=== PATIENT | female | born 1965 | race Caucasian/White ===

== ENCOUNTER 2022-04-05 05:37 | Inpatient (IN) | payer BC ==
[~2022-04-05] VITALS: Ht 146.1 cm; Wt 61.4 kg
[2022-04-05] MEDS ORDERED: NS 1,000 ML IV ONE (06:30)
[2022-04-05] MEDS ORDERED: MORPHINE 4 MG/ML 1ML VIAL/SYRINGE IV ONE (06:30)
[2022-04-05] MEDS ORDERED: ONDANSETRON 4MG/2ML VIAL IV ONE (06:30)
[2022-04-05 06:55] LABS: BASO # 0.1 10^3/uL (0.0-0.2); BASO % 0.7 % (0.0-1.0); EOS % 0.1 % (0.0-3.0); HEMOGLOBIN 17.6 g/dl (12.0-15.5); LYMPH # 1.5 10^3/uL (1.5-5.0); MEAN CORPUSCULAR HEMOGLOBIN 28.2 pg (27.0-33.0); MEAN CORPUSCULAR HGB CONC 34.5 g/dl (32.0-36.5); MEAN CORPUSCULAR VOLUME 81.7 fl (80.0-96.0); MONO # 1.5 10^3/uL (0.0-0.8); MONO % 10.1 % (2.0-8.0); NEUTROPHILS # 11.6 10^3/uL (1.5-8.5); NEUTROPHILS % 78.7 % (36.0-66.0); PLATELET COUNT, AUTOMATED 279 10^3/uL (150-450); RED BLOOD COUNT 6.24 10^6/uL (4.00-5.40); WHITE BLOOD COUNT 14.7 10^3/uL (4.0-10.0)
[2022-04-05 07:10] LABS: ALBUMIN 3.9 GM/DL (3.2-5.2); BILIRUBIN,DIRECT 0.3 MG/DL (0.0-0.2); BILIRUBIN,TOTAL 0.6 MG/DL (0.2-1.0); C REACTIVE PROTEIN QUANTITATIV 8.27 MG/DL (0.00-0.30); CALCIUM LEVEL 9.7 MG/DL (8.5-10.1); CREATININE FOR GFR 1.61 MG/DL (0.55-1.30); GLOMERULAR FILTRATION RATE 35.1 (>51); POTASSIUM SERUM 4.2 MEQ/L (3.5-5.1); TOTAL PROTEIN 8.5 GM/DL (6.4-8.2)
[2022-04-05 07:18] LABS: ERYTHROCYTE SEDIMENTATION RATE 21 mm/hr (0-30)
[2022-04-05] MEDS ORDERED: ISOVUE-370 76% 100ML VIAL As Ordered ONE (07:20)
[2022-04-05] MEDS ORDERED: HOME MED LIST COMPLETE! XX SCH (10:50)
[2022-04-05] MEDS: NS 1,000 ML IV SCH ×2 (11:30→19:32)
[2022-04-05 13:16] VITALS: BP_SYST 140; BP_SYST 80; BP_DIAS 140; BP_DIAS 80
[2022-04-05] MEDS: MORPHINE 4 MG/ML 1ML VIAL/SYRINGE IV PRN ×2 (13:47→21:57)
[2022-04-05] MEDS: ONDANSETRON 4MG/2ML VIAL IV PRN (15:58)
[2022-04-05] MEDS ORDERED: HEPARIN SOD (PORCINE) 5000UNITS/ML 1ML VIAL/SYRINGE SC SCH (21:00)
[2022-04-05] MEDS ORDERED: traZODone 100 MG TAB PO ONE (21:40)
[2022-04-05] MEDS: PANTOPRAZOLE 40MG VIAL IV SCH (21:56)
[2022-04-05 22:00] VITALS: BP 156/92
[2022-04-06] MEDS: NS 1,000 ML IV SCH ×4 (02:18→23:15)
[2022-04-06] MEDS: ONDANSETRON 4MG/2ML VIAL IV PRN ×3 (05:41→23:15)
[2022-04-06] MEDS: MORPHINE 4 MG/ML 1ML VIAL/SYRINGE IV PRN ×3 (05:42→18:55)
[2022-04-06 05:50] VITALS: BP 107/65
[2022-04-06 06:23] LABS: HEMATOCRIT 37.7 % (36.0-47.0); MEAN CORPUSCULAR HEMOGLOBIN 27.6 pg (27.0-33.0); MEAN CORPUSCULAR HGB CONC 32.4 g/dl (32.0-36.5); MEAN CORPUSCULAR VOLUME 85.3 fl (80.0-96.0); RED BLOOD COUNT 4.42 10^6/uL (4.00-5.40); WHITE BLOOD COUNT 7.9 10^3/uL (4.0-10.0)
[2022-04-06 06:24] LABS: HEMOGLOBIN 12.2 g/dl (12.0-15.5); PLATELET COUNT, AUTOMATED 157 10^3/uL (150-450)
[2022-04-06 06:45] LABS: BLOOD UREA NITROGEN 15 MG/DL (7-18); CALCIUM LEVEL 7.5 MG/DL (8.5-10.1); CARBON DIOXIDE LEVEL 22 MEQ/L (21-32); CHLORIDE LEVEL 110 MEQ/L (98-107); CREATININE FOR GFR 0.98 MG/DL (0.55-1.30); GLOMERULAR FILTRATION RATE > 60.0 (>51); GLUCOSE, FASTING 97 MG/DL (70-100); POTASSIUM SERUM 3.7 MEQ/L (3.5-5.1); SODIUM LEVEL 139 MEQ/L (136-145)
[2022-04-06] MEDS: PANTOPRAZOLE 40MG VIAL IV SCH ×2 (09:06→21:44)
[2022-04-06 14:00] VITALS: BP 126/79
[2022-04-06] MEDS ORDERED: cefTRIAXone SOD 1 GM in D5W MINI-BAG PLUS 50 ML IV SCH (15:00)
[2022-04-06 20:00] VITALS: BP 154/82
[2022-04-06] MEDS: traZODone 100 MG TAB PO SCH (21:44)
[2022-04-06] MEDS ORDERED: CIPROFLOXACIN 400 MG in IV 1 EA IV SCH (23:00)
[2022-04-07 06:00] VITALS: BP 134/73
[2022-04-07] MEDS ORDERED: CIPROFLOXACIN 500MG TABLET PO SCH (06:00)
[2022-04-07] MEDS: NS 1,000 ML IV SCH ×3 (06:15→18:02)
[2022-04-07] MEDS: MORPHINE 4 MG/ML 1ML VIAL/SYRINGE IV PRN (08:32)
[2022-04-07] MEDS: ONDANSETRON 4MG/2ML VIAL IV PRN ×2 (08:33→15:07)
[2022-04-07] MEDS: PANTOPRAZOLE 40MG VIAL IV SCH ×2 (08:33→21:49)
[2022-04-07] MEDS ORDERED: CIPR-249 PO (09:02)
[2022-04-07 09:59] LABS: HEMATOCRIT 35.1 % (36.0-47.0); HEMOGLOBIN 11.6 g/dl (12.0-15.5); MEAN CORPUSCULAR HEMOGLOBIN 28.1 pg (27.0-33.0); PLATELET COUNT, AUTOMATED 167 10^3/uL (150-450); RED BLOOD COUNT 4.13 10^6/uL (4.00-5.40); WHITE BLOOD COUNT 5.1 10^3/uL (4.0-10.0)
[2022-04-07 10:40] LABS: BLOOD UREA NITROGEN 7 MG/DL (7-18); CALCIUM LEVEL 8.2 MG/DL (8.5-10.1); CARBON DIOXIDE LEVEL 24 MEQ/L (21-32); CHLORIDE LEVEL 112 MEQ/L (98-107); CREATININE FOR GFR 0.88 MG/DL (0.55-1.30); GLOMERULAR FILTRATION RATE > 60.0 (>51); GLUCOSE, FASTING 113 MG/DL (70-100); POTASSIUM SERUM 3.4 MEQ/L (3.5-5.1); SODIUM LEVEL 142 MEQ/L (136-145)
[2022-04-07] MEDS ORDERED: POTASSIUM CHLORIDE 10MEQ SR TABLET PO ONE (12:10)
[2022-04-07 13:54] VITALS: BP 143/80
[2022-04-07] MEDS: traZODone 100 MG TAB PO SCH (21:49)
[2022-04-07] MEDS: CIPROFLOXACIN 400 MG in IV 1 EA IV SCH (21:50)
[2022-04-07 22:00] VITALS: BP 150/84
[2022-04-08] MEDS: NS 1,000 ML IV SCH ×4 (01:49→19:30)
[2022-04-08 06:00] VITALS: BP 150/83
[2022-04-08] MEDS: PANTOPRAZOLE 40MG VIAL IV SCH ×2 (07:58→20:16)
[2022-04-08] MEDS: CIPROFLOXACIN 400 MG in IV 1 EA IV SCH ×2 (07:58→20:14)
[2022-04-08] MEDS: traMADol 50 MG TAB PO PRN ×2 (07:59→20:15)
[2022-04-08 08:33] LABS: HEMATOCRIT 38.3 % (36.0-47.0); HEMOGLOBIN 12.7 g/dl (12.0-15.5); MEAN CORPUSCULAR HEMOGLOBIN 28.1 pg (27.0-33.0); MEAN CORPUSCULAR HGB CONC 33.2 g/dl (32.0-36.5); MEAN CORPUSCULAR VOLUME 84.7 fl (80.0-96.0); PLATELET COUNT, AUTOMATED 214 10^3/uL (150-450); RED BLOOD COUNT 4.52 10^6/uL (4.00-5.40); WHITE BLOOD COUNT 7.5 10^3/uL (4.0-10.0)
[2022-04-08 09:01] LABS: BLOOD UREA NITROGEN 5 MG/DL (7-18); CALCIUM LEVEL 8.6 MG/DL (8.5-10.1); CARBON DIOXIDE LEVEL 23 MEQ/L (21-32); CHLORIDE LEVEL 109 MEQ/L (98-107); CREATININE FOR GFR 0.94 MG/DL (0.55-1.30); GLOMERULAR FILTRATION RATE > 60.0 (>51); GLUCOSE, FASTING 107 MG/DL (70-100); POTASSIUM SERUM 3.6 MEQ/L (3.5-5.1); SODIUM LEVEL 140 MEQ/L (136-145)
[2022-04-08] MEDS ORDERED: GI COCKTAIL 50ML BTL(HYOSCYAMINE/MAALOX/LIDOCAINE VISCOUS)(1:3:1) PO PRN (10:15)
[2022-04-08 14:00] VITALS: BP 160/95
[2022-04-08 18:54] VITALS: BP 146/79
[2022-04-08] MEDS: traZODone 100 MG TAB PO SCH (20:14)
[2022-04-08 22:00] VITALS: BP 158/79
[2022-04-09] MEDS: NS 1,000 ML IV SCH ×2 (00:23→08:17)
[2022-04-09 05:29] VITALS: BP 147/91
[2022-04-09] MEDS: ONDANSETRON 4MG/2ML VIAL IV PRN (06:18)
[2022-04-09 06:48] LABS: HEMATOCRIT 35.5 % (36.0-47.0); HEMOGLOBIN 11.8 g/dl (12.0-15.5); MEAN CORPUSCULAR HEMOGLOBIN 27.6 pg (27.0-33.0); MEAN CORPUSCULAR HGB CONC 33.2 g/dl (32.0-36.5); MEAN CORPUSCULAR VOLUME 82.9 fl (80.0-96.0); PLATELET COUNT, AUTOMATED 202 10^3/uL (150-450); RED BLOOD COUNT 4.28 10^6/uL (4.00-5.40); WHITE BLOOD COUNT 8.1 10^3/uL (4.0-10.0)
[2022-04-09 07:17] LABS: BLOOD UREA NITROGEN 5 MG/DL (7-18); CALCIUM LEVEL 7.6 MG/DL (8.5-10.1); CARBON DIOXIDE LEVEL 23 MEQ/L (21-32); CHLORIDE LEVEL 111 MEQ/L (98-107); CREATININE FOR GFR 0.82 MG/DL (0.55-1.30); GLOMERULAR FILTRATION RATE > 60.0 (>51); GLUCOSE, FASTING 90 MG/DL (70-100); POTASSIUM SERUM 3.2 MEQ/L (3.5-5.1); SODIUM LEVEL 138 MEQ/L (136-145)
[2022-04-09] MEDS ORDERED: ANALGESIC BALM CRM 3OZ TOP PRN (07:55)
[2022-04-09] MEDS ORDERED: POTASSIUM CHLORIDE 10MEQ SR TABLET PO ONE (07:55)
[2022-04-09] MEDS: CIPROFLOXACIN 400 MG in IV 1 EA IV SCH ×2 (08:17→20:29)
[2022-04-09] MEDS: PANTOPRAZOLE 40MG VIAL IV SCH ×2 (08:18→20:30)
[2022-04-09] MEDS: SUCRALFATE SUSP 1GM/10ML UD PO SCH ×6 (08:18→21:00)
[2022-04-09] MEDS: traMADol 50 MG TAB PO PRN (08:21)
[2022-04-09] MEDS: KCL 40MEQ IN D5/0.45NS 1000ML 1,000 ML IV SCH ×2 (09:56→20:29)
[2022-04-09 14:00] VITALS: BP 173/84
[2022-04-09] MEDS ORDERED: KETOROLAC 30 MG/ML 1ML VIAL IV ONE (16:30)
[2022-04-09 16:39] VITALS: BP 164/86
[2022-04-09] MEDS: LIDOCAINE 5% (LIDODERM) PATCH TD SCH (17:26)
[2022-04-09] MEDS ORDERED: PROMETHAZINE 25MG/ML 1ML VIAL IV STA (17:41)
[2022-04-09 18:32] LABS: BLOOD UREA NITROGEN 5 MG/DL (7-18); CARBON DIOXIDE LEVEL 23 MEQ/L (21-32); CHLORIDE LEVEL 110 MEQ/L (98-107); CREATININE FOR GFR 0.87 MG/DL (0.55-1.30); GLOMERULAR FILTRATION RATE > 60.0 (>51); GLUCOSE, FASTING 117 MG/DL (70-100); POTASSIUM SERUM 3.5 MEQ/L (3.5-5.1); SODIUM LEVEL 138 MEQ/L (136-145)
[2022-04-09] MEDS: traZODone 100 MG TAB PO SCH (20:29)
[2022-04-09] MEDS: **NOTE PATIENT COMMENT** MISC XX SCH (20:31)
[2022-04-09 22:00] VITALS: BP 142/77
[2022-04-09] MEDS ORDERED: PROMETHAZINE 25MG/ML 1ML VIAL IV PRN (23:00)
[2022-04-10 04:53] VITALS: BP 167/87
[2022-04-10 05:54] LABS: HEMATOCRIT 33.3 % (36.0-47.0); HEMOGLOBIN 11.3 g/dl (12.0-15.5); MEAN CORPUSCULAR HEMOGLOBIN 28.1 pg (27.0-33.0); MEAN CORPUSCULAR HGB CONC 33.9 g/dl (32.0-36.5); MEAN CORPUSCULAR VOLUME 82.8 fl (80.0-96.0); PLATELET COUNT, AUTOMATED 198 10^3/uL (150-450); RED BLOOD COUNT 4.02 10^6/uL (4.00-5.40); WHITE BLOOD COUNT 6.4 10^3/uL (4.0-10.0)
[2022-04-10 06:18] LABS: BLOOD UREA NITROGEN 4 MG/DL (7-18); CALCIUM LEVEL 7.8 MG/DL (8.5-10.1); CARBON DIOXIDE LEVEL 24 MEQ/L (21-32); CHLORIDE LEVEL 110 MEQ/L (98-107); CREATININE FOR GFR 0.98 MG/DL (0.55-1.30); GLOMERULAR FILTRATION RATE > 60.0 (>51); GLUCOSE, FASTING 122 MG/DL (70-100); POTASSIUM SERUM 3.9 MEQ/L (3.5-5.1); SODIUM LEVEL 139 MEQ/L (136-145)
[2022-04-10] MEDS: KCL 40MEQ IN D5/0.45NS 1000ML 1,000 ML IV SCH ×3 (06:52→20:33)
[2022-04-10] MEDS ORDERED: ISOVUE-370 76% 100ML VIAL As Ordered ONE (07:52)
[2022-04-10] MEDS: PANTOPRAZOLE 40MG VIAL IV SCH ×2 (08:44→20:33)
[2022-04-10] MEDS: CIPROFLOXACIN 400 MG in IV 1 EA IV SCH (08:44)
[2022-04-10] MEDS: SUCRALFATE SUSP 1GM/10ML UD PO SCH ×2 (08:44→11:21)
[2022-04-10] MEDS: LIDOCAINE 5% (LIDODERM) PATCH TD SCH (08:44)
[2022-04-10 11:06] LABS: ALBUMIN 2.5 GM/DL (3.2-5.2); ALT/SGPT 28 U/L (12-78); BILIRUBIN,DIRECT < 0.1 MG/DL (0.0-0.2); BILIRUBIN,TOTAL 0.3 MG/DL (0.2-1.0); TOTAL PROTEIN 5.3 GM/DL (6.4-8.2)
[2022-04-10] MEDS: PIPERACILLIN/TAZOBACTAM SOD 3.375 GM in D5W MINI-BAG PLUS 50 ML IV SCH ×3 (11:21→22:36)
[2022-04-10 12:03] VITALS: BP 140/61
[2022-04-10 14:00] VITALS: BP 142/78
[2022-04-10] MEDS: traMADol 50 MG TAB PO PRN (15:07)
[2022-04-10 15:58] LABS: C REACTIVE PROTEIN QUANTITATIV 1.17 MG/DL (0.00-0.30)
[2022-04-10 19:16] LABS: IMMUNOGLOBULIN G 768 MG/DL (681-1648)
[2022-04-10] MEDS: LACTOBACILLUS ACIDOPHILUS CAP (BACID) PO SCH (19:31)
[2022-04-10 19:55] LABS: HEPATITIS C VIRUS ABY INDEX 0.1 INDEX (<0.8); HIV 1&2 SCREEN CENTAUR NEGATIVE (NEGATIVE)
[2022-04-10] MEDS: traZODone 100 MG TAB PO SCH (20:33)
[2022-04-10] MEDS: **NOTE PATIENT COMMENT** MISC XX SCH (20:34)
[2022-04-10 21:49] VITALS: BP 168/95
[2022-04-11] MEDS: ONDANSETRON 4MG/2ML VIAL IV PRN ×3 (01:26→23:27)
[2022-04-11] MEDS: traMADol 50 MG TAB PO PRN (01:29)
[2022-04-11] MEDS: PIPERACILLIN/TAZOBACTAM SOD 3.375 GM in D5W MINI-BAG PLUS 50 ML IV SCH ×4 (05:02→23:27)
[2022-04-11 05:39] VITALS: BP 122/73
[2022-04-11 06:57] LABS: HEMATOCRIT 36.3 % (36.0-47.0); HEMOGLOBIN 12.2 g/dl (12.0-15.5); MEAN CORPUSCULAR HEMOGLOBIN 27.7 pg (27.0-33.0); MEAN CORPUSCULAR HGB CONC 33.6 g/dl (32.0-36.5); MEAN CORPUSCULAR VOLUME 82.3 fl (80.0-96.0); PLATELET COUNT, AUTOMATED 232 10^3/uL (150-450); RED BLOOD COUNT 4.41 10^6/uL (4.00-5.40); WHITE BLOOD COUNT 8.2 10^3/uL (4.0-10.0)
[2022-04-11 07:32] LABS: ALBUMIN 2.7 GM/DL (3.2-5.2); BILIRUBIN,DIRECT 0.2 MG/DL (0.0-0.2); BILIRUBIN,TOTAL 0.6 MG/DL (0.2-1.0); CALCIUM LEVEL 8.9 MG/DL (8.5-10.1); CREATININE FOR GFR 1.13 MG/DL (0.55-1.30); GLOMERULAR FILTRATION RATE 52.8 (>51); POTASSIUM SERUM 4.2 MEQ/L (3.5-5.1)
[2022-04-11] MEDS: PANTOPRAZOLE 40MG VIAL IV SCH ×2 (08:23→20:24)
[2022-04-11] MEDS: LIDOCAINE 5% (LIDODERM) PATCH TD SCH (08:23)
[2022-04-11] MEDS: LACTOBACILLUS ACIDOPHILUS CAP (BACID) PO SCH ×3 (08:24→17:05)
[2022-04-11] MEDS: KCL 40MEQ IN D5/0.45NS 1000ML 1,000 ML IV SCH ×2 (11:38→21:30)
[2022-04-11 16:00] VITALS: BP 144/80
[2022-04-11 20:10] VITALS: BP 144/84
[2022-04-11] MEDS: **NOTE PATIENT COMMENT** MISC XX SCH (20:24)
[2022-04-11] MEDS: traZODone 100 MG TAB PO SCH (20:24)
[2022-04-11] MEDS: oxyCODONE 5MG TAB PO PRN (20:24)
[2022-04-12] MEDS: PIPERACILLIN/TAZOBACTAM SOD 3.375 GM in D5W MINI-BAG PLUS 50 ML IV SCH ×4 (04:59→22:27)
[2022-04-12 06:00] VITALS: BP 128/79
[2022-04-12 06:00] LABS: HEMATOCRIT 38.9 % (36.0-47.0); HEMOGLOBIN 13.1 g/dl (12.0-15.5); MEAN CORPUSCULAR HEMOGLOBIN 27.5 pg (27.0-33.0); MEAN CORPUSCULAR HGB CONC 33.7 g/dl (32.0-36.5); MEAN CORPUSCULAR VOLUME 81.7 fl (80.0-96.0); PLATELET COUNT, AUTOMATED 254 10^3/uL (150-450); RED BLOOD COUNT 4.76 10^6/uL (4.00-5.40); WHITE BLOOD COUNT 11.2 10^3/uL (4.0-10.0)
[2022-04-12 06:29] LABS: CALCIUM LEVEL 8.6 MG/DL (8.5-10.1); CREATININE FOR GFR 1.23 MG/DL (0.55-1.30); GLOMERULAR FILTRATION RATE 47.9 (>51); POTASSIUM SERUM 4.2 MEQ/L (3.5-5.1)
[2022-04-12] MEDS: LACTOBACILLUS ACIDOPHILUS CAP (BACID) PO SCH ×3 (08:00→17:52)
[2022-04-12] MEDS: ONDANSETRON 4MG/2ML VIAL IV PRN (08:21)
[2022-04-12] MEDS: PANTOPRAZOLE 40MG VIAL IV SCH ×2 (08:21→22:28)
[2022-04-12] MEDS: KCL 40MEQ IN D5/0.45NS 1000ML 1,000 ML IV SCH ×2 (08:21→17:52)
[2022-04-12 09:00] VITALS: BP 164/90
[2022-04-12] MEDS: LIDOCAINE 5% (LIDODERM) PATCH TD SCH (10:02)
[2022-04-12] MEDS: oxyCODONE 5MG TAB PO PRN (11:25)
[2022-04-12 14:00] VITALS: BP 146/91
[2022-04-12 20:00] VITALS: BP 144/73
[2022-04-12] MEDS: **NOTE PATIENT COMMENT** MISC XX SCH (21:00)
[2022-04-12] MEDS: traZODone 100 MG TAB PO SCH (22:28)
[2022-04-13] MEDS: KCL 40MEQ IN D5/0.45NS 1000ML 1,000 ML IV SCH ×2 (05:58→14:23)
[2022-04-13] MEDS: PIPERACILLIN/TAZOBACTAM SOD 3.375 GM in D5W MINI-BAG PLUS 50 ML IV SCH ×4 (05:58→22:34)
[2022-04-13 06:01] VITALS: BP 132/85
[2022-04-13 06:06] LABS: HEMATOCRIT 38.5 % (36.0-47.0); HEMOGLOBIN 12.8 g/dl (12.0-15.5); MEAN CORPUSCULAR HEMOGLOBIN 27.5 pg (27.0-33.0); MEAN CORPUSCULAR HGB CONC 33.2 g/dl (32.0-36.5); MEAN CORPUSCULAR VOLUME 82.6 fl (80.0-96.0); PLATELET COUNT, AUTOMATED 236 10^3/uL (150-450); RED BLOOD COUNT 4.66 10^6/uL (4.00-5.40); WHITE BLOOD COUNT 10.4 10^3/uL (4.0-10.0)
[2022-04-13 06:21] LABS: CREATININE FOR GFR 1.19 MG/DL (0.55-1.30); GLOMERULAR FILTRATION RATE 49.8 (>51); POTASSIUM SERUM 4.4 MEQ/L (3.5-5.1)
[2022-04-13] MEDS: LACTOBACILLUS ACIDOPHILUS CAP (BACID) PO SCH ×3 (08:00→17:30)
[2022-04-13] MEDS: LIDOCAINE 5% (LIDODERM) PATCH TD SCH (08:55)
[2022-04-13] MEDS: PANTOPRAZOLE 40MG VIAL IV SCH ×2 (08:55→22:35)
[2022-04-13 09:10] LABS: CLOSTRIDIUM DIFFICILE PCR NEGATIVE (NEGATIVE)
[2022-04-13 14:00] VITALS: BP 152/82
[2022-04-13] MEDS: NYSTATIN 100,000 UNITS/GM TOPICAL PWD 15 GM TOP SCH ×2 (14:22→22:35)
[2022-04-13] MEDS ORDERED: NYSTATIN 100,000 UNITS/GM TOPICAL PWD 15 GM TOP SCH ×2 (21:00)
[2022-04-13] MEDS: **NOTE PATIENT COMMENT** MISC XX SCH (21:00)
[2022-04-13 22:00] VITALS: BP 163/77
[2022-04-13] MEDS: traZODone 100 MG TAB PO SCH (22:34)
[2022-04-14 03:49] VITALS: BP 136/88
[2022-04-14] MEDS: PIPERACILLIN/TAZOBACTAM SOD 3.375 GM in D5W MINI-BAG PLUS 50 ML IV SCH ×4 (05:42→23:03)
[2022-04-14 06:00] VITALS: BP 137/78
[2022-04-14 06:22] LABS: HEMATOCRIT 39.7 % (36.0-47.0); HEMOGLOBIN 13.3 g/dl (12.0-15.5); MEAN CORPUSCULAR HEMOGLOBIN 27.6 pg (27.0-33.0); MEAN CORPUSCULAR HGB CONC 33.5 g/dl (32.0-36.5); MEAN CORPUSCULAR VOLUME 82.4 fl (80.0-96.0); PLATELET COUNT, AUTOMATED 250 10^3/uL (150-450); RED BLOOD COUNT 4.82 10^6/uL (4.00-5.40); WHITE BLOOD COUNT 11.7 10^3/uL (4.0-10.0)
[2022-04-14 06:55] LABS: CREATININE FOR GFR 1.21 MG/DL (0.55-1.30); GLOMERULAR FILTRATION RATE 48.8 (>51); POTASSIUM SERUM 4.1 MEQ/L (3.5-5.1)
[2022-04-14] MEDS: LACTOBACILLUS ACIDOPHILUS CAP (BACID) PO SCH ×3 (09:21→17:11)
[2022-04-14] MEDS: LIDOCAINE 5% (LIDODERM) PATCH TD SCH (09:21)
[2022-04-14] MEDS: PANTOPRAZOLE 40MG VIAL IV SCH ×2 (09:21→20:06)
[2022-04-14] MEDS: NYSTATIN 100,000 UNITS/GM TOPICAL PWD 15 GM TOP SCH ×2 (09:22→20:07)
[2022-04-14] MEDS: oxyCODONE 5MG TAB PO PRN (18:08)
[2022-04-14] MEDS: **NOTE PATIENT COMMENT** MISC XX SCH (20:07)
[2022-04-14] MEDS: ONDANSETRON 4MG/2ML VIAL IV PRN (21:46)
[2022-04-14 22:00] VITALS: BP 136/87
[2022-04-14] MEDS: traZODone 100 MG TAB PO SCH (23:03)
[2022-04-15] MEDS: PIPERACILLIN/TAZOBACTAM SOD 3.375 GM in D5W MINI-BAG PLUS 50 ML IV SCH ×2 (05:04→11:16)
[2022-04-15 06:00] VITALS: BP 113/74
[2022-04-15 06:46] LABS: HEMATOCRIT 39.7 % (36.0-47.0); HEMOGLOBIN 13.1 g/dl (12.0-15.5); MEAN CORPUSCULAR HEMOGLOBIN 27.3 pg (27.0-33.0); MEAN CORPUSCULAR VOLUME 82.7 fl (80.0-96.0); PLATELET COUNT, AUTOMATED 233 10^3/uL (150-450)
[2022-04-15 07:10] LABS: CALCIUM LEVEL 9.2 MG/DL (8.5-10.1); CREATININE FOR GFR 1.22 MG/DL (0.55-1.30); GLOMERULAR FILTRATION RATE 48.4 (>51); POTASSIUM SERUM 3.8 MEQ/L (3.5-5.1)
[2022-04-15] MEDS: PANTOPRAZOLE 40MG VIAL IV SCH (08:22)
[2022-04-15] MEDS: LACTOBACILLUS ACIDOPHILUS CAP (BACID) PO SCH ×2 (08:23→12:30)
[2022-04-15] MEDS: LIDOCAINE 5% (LIDODERM) PATCH TD SCH (08:26)
[2022-04-15] MEDS: NYSTATIN 100,000 UNITS/GM TOPICAL PWD 15 GM TOP SCH (08:26)
[2022-04-15] MEDS: ONDANSETRON 4MG/2ML VIAL IV PRN (12:00)
[2022-04-15] MEDS ORDERED: FLUCONAZOLE 50MG TABLET PO ONE ×2 (13:00→14:00)
[2022-04-15 14:00] VITALS: BP 120/86
[2022-04-15] MEDS ORDERED: FLUCONAZOLE 100 MG TAB PO ONE (14:00)
[2022-04-15] MEDS ORDERED: OMEP40CA4 PO (17:10)
[2022-04-15] MEDS ORDERED: ONDA4TAB6 PO (17:10)
[2022-04-15] MEDS ORDERED: NYST10006 TOP (17:10)
[2022-04-15] MEDS ORDERED: RISATAB3 PO (17:13)
[2022-04-15] MEDS ORDERED: FLUC150T9 PO (18:23)
== END 2022-04-15 18:35 | disposition home or self-care (01) | DRG 248 ==
LOC: M ED 05:37 → M ED INP 05:38 → UNDOADMOB 11:30 → INTOOBSV 11:30 → ENRESERV 12:04 → M MSPAV 13:10 → M ED INP 13:10 → M MSPAV 13:10 → OBSVTOIN 04-07 12:38
PROVIDERS: ADMIT Internal Medicine; ATTEND Internal Medicine
DX: A02.0 Salmonella enteritis (principal); N17.9 Acute kidney failure, unspecified; E87.2 Acidosis; B37.3 Candidiasis of vulva and vagina; N39.0 Urinary tract infection, site not specified; M81.0 Age-related osteoporosis without current pathological fracture; N18.9 Chronic kidney disease, unspecified; G89.29 Other chronic pain; G47.00 Insomnia, unspecified; E86.0 Dehydration; Z88.6 Allergy status to analgesic agent; B96.20 Unspecified Escherichia coli [E. coli] as the cause of diseases classified elsewhere; Z87.19 Personal history of other diseases of the digestive system; Z87.442 Personal history of urinary calculi; Z90.5 Acquired absence of kidney; Z90.49 Acquired absence of other specified parts of digestive tract; Z87.891 Personal history of nicotine dependence

== ENCOUNTER → 2025-08-11 | Outpatient (CLI) | payer OTHER ==
[~2025-08-11] MED LIST: CIPR-249 PO; FLUC150T9 PO; NYST10006 TOP; OMEP40CA4 PO; ONDA-282 PO; RISATAB3 PO
[2025-08-11 14:38] LABS: CREATININE FOR GFR 1.05 MG/DL (0.55-1.30); GLOMERULAR FILTRATION RATE 60.5 (>45)
== END ==
LOC: M LAB 13:27
PROVIDERS: ATTEND Surgery
DX: K43.2 Incisional hernia without obstruction or gangrene (principal)

== ENCOUNTER → 2025-09-11 | Outpatient (CLI) | payer OTHER ==
[~2025-09-11] MED LIST changes: +ISOVUE-370 76% 100 ML VIAL As Ordered ONE
== END ==
LOC: M RAD 13:49
PROVIDERS: ATTEND Surgery
DX: K43.0 Incisional hernia with obstruction, without gangrene (principal)